=== PATIENT | male | born 1970 | race Caucasian/White ===

== ENCOUNTER 2016-10-05 08:25 | Emergency (ER) | payer OTHER ==
[~2016-10-05] VITALS: Ht 177.8 cm; Wt 86.2 kg
[2016-10-05] MEDS ORDERED: DOXYCYCLINE 10100 M1 PO (09:24)
[2016-10-05] MEDS ORDERED: IBUPROFEN 600600 M1 PO (09:26)
[2016-10-05 09:35] VITALS: BP 121/75
== END 2016-10-05 09:36 | disposition home or self-care (01) ==
LOC: ER 08:25
DX: J32.9 Chronic sinusitis, unspecified (principal); F17.210 Nicotine dependence, cigarettes, uncomplicated; F10.99 Alcohol use, unspecified with unspecified alcohol-induced disorder; Z88.0 Allergy status to penicillin